=== PATIENT | female | born 1970 | race Two or more races ===

== ENCOUNTER → 2018-03-19 | Outpatient (CLI) | payer OTHER ==
[~2018-03-19] MED LIST: BENADRYL50 MG PO; MEDROL4 MG PO
== END | disposition home or self-care (01) ==
LOC: SONOGRAMA 12:23
DX: N60.11 Diffuse cystic mastopathy of right breast (principal); N60.12 Diffuse cystic mastopathy of left breast; N63.13 Unspecified lump in the right breast, lower outer quadrant

== ENCOUNTER 2019-02-26 10:50 | Emergency (ER) | payer OTHER ==
[~2019-02-26] VITALS: Ht 160 cm; Wt 67.6 kg
== END 2019-02-26 16:37 | disposition home or self-care (01) ==
LOC: ER 10:50
DX: K29.70 Gastritis, unspecified, without bleeding (principal); K20.9 Esophagitis, unspecified

== ENCOUNTER 2019-05-22 21:37 | Emergency (ER) | payer OTHER ==
[~2019-05-22] VITALS: Ht 160 cm; Wt 67.1 kg
[2019-05-23] MEDS ORDERED: KETO10TA2 PO (02:14)
== END 2019-05-23 03:19 ==
LOC: ER 21:37
DX: N20.0 Calculus of kidney (principal); M54.89 Other dorsalgia; N83.291 Other ovarian cyst, right side; R10.32 Left lower quadrant pain; R11.11 Vomiting without nausea

== ENCOUNTER 2019-10-26 11:04 | Emergency (ER) | payer OTHER ==
[~2019-10-26] VITALS: Ht 160 cm; Wt 68.0 kg
[~2019-10-26 11:04] MED LIST changes: +KETO10TA2 PO
[2019-10-26] MEDS ORDERED: PROTONIX40 M1 PO (11:29)
[2019-10-26] MEDS ORDERED: PROMETH-CODEIN 65 ML PO (14:59)
== END 2019-10-26 15:45 | disposition home or self-care (01) ==
LOC: ER 11:04
DX: J45.998 Other asthma (principal); B34.9 Viral infection, unspecified

== ENCOUNTER 2022-01-03 11:25 | Emergency (ER) | payer OTHER ==
[~2022-01-03] VITALS: Ht 160 cm; Wt 68.5 kg
[~2022-01-03 11:25] MED LIST changes: +PROMETH-CODEIN 65 ML PO; +PROTONIX40 M1 PO
== END 2022-01-03 13:27 | disposition home or self-care (01) ==
LOC: ER 11:25
DX: M79.18 Myalgia, other site (principal); Z88.0 Allergy status to penicillin

== ENCOUNTER 2022-04-12 10:35 | Emergency (ER) | payer OTHER ==
[~2022-04-12] VITALS: Ht 160 cm; Wt 70.3 kg
== END 2022-04-12 16:31 | disposition home or self-care (01) ==
LOC: ER 10:35
DX: M62.830 Muscle spasm of back (principal); R07.9 Chest pain, unspecified; Z88.0 Allergy status to penicillin; Z88.8 Allergy status to other drugs, medicaments and biological substances

== ENCOUNTER 2022-10-01 11:04 | Outpatient (CLI) | payer OTHER | END 2022-10-01 11:11 | disposition home or self-care (01) | LOC: RAD 11:04 | PROVIDERS: ATTEND Physical Medicine & Rehabilitation | DX: M54.2 Cervicalgia (principal) ==

== ENCOUNTER 2023-08-10 14:20 | Emergency (ER) | payer OTHER ==
[~2023-08-10] VITALS: Ht 157.5 cm; Wt 71.2 kg
[2023-08-10 17:10] LABS: HEMATOCRIT 38.3 % (36.0-45.00); HEMOGLOBIN 12.8 g/dL (12.0-15.00); MEAN CELL VOLUME 88.1 fL (80.00-100.00); MEAN CORPUSCULAR HEMOGLOBIN 29.3 pg (27.00-32.0); MEAN CORPUSCULAR HGB CONC 33.3 g/dl (32.0-36.0); PLATELET COUNT 374 K/uL (150-450); RED BLOOD COUNT 4.35 M/uL (4.00-6.00); RED CELL DISTRIBUTION WIDTH 14.1 % (11.5-14.5)
== END 2023-08-10 18:21 | disposition home or self-care (01) ==
LOC: ER 14:21
PROVIDERS: General Practice
DX: J06.9 Acute upper respiratory infection, unspecified (principal); Z88.0 Allergy status to penicillin; Z88.8 Allergy status to other drugs, medicaments and biological substances; Z20.822 Contact with and (suspected) exposure to COVID-19

== ENCOUNTER 2023-11-28 00:28 | Emergency (ER) | payer OTHER ==
[~2023-11-28] VITALS: Ht 157.5 cm; Wt 70.8 kg
[2023-11-28] MEDS ORDERED: IPRATROPIUM BROMIDE 0.5 MG/2.5 ML AMPUL.NEB IH STA (03:25)
[2023-11-28] MEDS ORDERED: ALBUTEROL SULFATE 3 ML/2.5 MG AMPUL.NEB IH SCH (03:30)
[2023-11-28 03:41] LABS: HEMATOCRIT 39.8 % (36.0-45.00); HEMOGLOBIN 13.1 g/dL (12.0-15.00); MEAN CELL VOLUME 87.1 fL (80.00-100.00); MEAN CORPUSCULAR HEMOGLOBIN 28.7 pg (27.00-32.0); PLATELET COUNT 328 K/uL (150-450); RED BLOOD COUNT 4.57 M/uL (4.00-6.00)
== END 2023-11-28 06:55 | disposition home or self-care (01) ==
LOC: ER 00:28
DX: J45.901 Unspecified asthma with (acute) exacerbation (principal); J06.9 Acute upper respiratory infection, unspecified; Z20.822 Contact with and (suspected) exposure to COVID-19